=== PATIENT | female | born 1935 | race Caucasian/White ===

== ENCOUNTER 2016-12-16 09:12 | Day surgery (SDC) | payer MEDICARE ==
[~2016-12-16 09:12] MED LIST: LACTATED RINGERS 1,000 ML IV SCH
[2016-12-16] MEDS ORDERED: LACTATED RINGERS 1,000 ML ONE (09:17)
[2016-12-16] MEDS ORDERED: IV START KIT ONE (09:17)
[2016-12-16] MEDS ORDERED: PROPOFOL 40 ML IV ONE (10:11)
[2016-12-16] MEDS ORDERED: LIDOCAINE 2% (PRES FREE) 5 ML VIAL ONE (10:11)
--- NOTE | 2016-12-20 15:43 | SURGPATH ---
[facility] [address] [place] [id number] Patient Name: ANNE CHAO MR#: [id number] : 1935 Gender: F Specimen #: [id number] Collected: 12/16/2016 Received: 12/17/2016 Reported: 12/20/2016 Submitting Phys: ERIC VICK Copy To Phys: [facility] GLORIA CLEMONS Clinical History / Pre-Operative Diagnosis: DIARRHEA; ABDOMINAL PAIN; TENESMUS; RULE OUT COLITIS Specimen Source / Surgical Procedure Performed: #1-CECAL BIOPSY; #2-SIGMOID BIOPSY AT 30 CM Interpretation: 1. CECUM, BIOPSY: - NONSPECIFIC CHANGES - SEE MICROSCOPIC DESCRIPTION 2. SIGMOID COLON, BIOPSY: - COLLAGENOUS COLITIS Electronically Signed Out Scotty Mascorro M.D. Gross Description: #1 The specimen is received in a formalin filled container labeled with the patient's name and "cecal biopsy". Two wheatley biopsies are 0.2 and 0.5 cm. Totally embedded in cassette #1. #2 The specimen is received in a formalin filled container labeled with the patient's name and "sigmoid biopsy at 30 cm". A single pink-nur biopsy is 0.5 cm. Totally embedded in cassette #2. Babak Ramirez Microscopic Description: 1. Sections show normal architecture with increased lamina propria inflammatory cells without active inflammation. These findings are nonspecific. No definite features of microscopic, chronic, or active colitis are seen. 2. Sections show normal architecture with increased chronic inflammatory cells in the lamina propria and thickened basement membrane. These findings are consistent with collagenous colitis. Please correlate clinically. 1: [id number] 2: 26158 K52.831
--- NOTE | 2016-12-21 10:27 | OP ---
Aiyana CHAO [id number] : 1935 DATE OF ADDENDUM: December 21, 2016 ADDENDUM: PLAN: This 81-year-old female patient within the practice of Dr. Mikayla Trejo underwent colonoscopy on, December 16, 2016 for chronic culture negative diarrhea. Diverticulosis without colonic mucosal abnormalities was the endoscopic findings. Colonic biopsies demonstrate collagenous colitis in the sigmoid and microscopic inflammation in the cecum. The patient is being contacted and informed and balsalazide 1500 mg twice daily has been added to her prescriptions of loperamide medical follow up will be by Dr. Mikayla Trejo. Job [id number] Cc: Mikayla Trejo M.D.
== END 2016-12-16 11:04 | disposition home or self-care (01) ==
LOC: SDC 09:12
PROVIDERS: ATTEND Internal Medicine Gastroenterology
PROC: 0DBN8ZX Excision of Sigmoid Colon, Via Natural or Artificial Opening Endoscopic, Diagnostic (ICD-10-PCS; principal; 2016-12-16)
PROC: 0DBH8ZX Excision of Cecum, Via Natural or Artificial Opening Endoscopic, Diagnostic (ICD-10-PCS; 2016-12-16)
DX: K52.831 Collagenous colitis (principal); K57.30 Diverticulosis of large intestine without perforation or abscess without bleeding; E78.5 Hyperlipidemia, unspecified; G47.33 Obstructive sleep apnea (adult) (pediatric); Z79.82 Long term (current) use of aspirin; Z87.440 Personal history of urinary (tract) infections
CPT/HCPCS: 45380; J7120